=== PATIENT | female | born 1960 | race Caucasian/White ===

== ENCOUNTER 2016-08-14 09:30 | Emergency (ER) | payer SELFPAY ==
[~2016-08-14] VITALS: Wt 85.0 kg
[2016-08-14 09:32] VITALS: Wt 85.0 kg
[2016-08-14 10:19] VITALS: TEMP 98.4
[2016-08-14] MEDS ORDERED: SOD CHLORIDE 0.9% 1,000 ML IV STA (10:19)
[2016-08-14] MEDS ORDERED: LORAZEPAM 2 MG INJ IV ONE (10:30)
[2016-08-14] MEDS ORDERED: AMLO5TAB4 PO (10:37)
[2016-08-14 10:58] LABS: ADD SCAN DIFF NO
[2016-08-14 11:00] LABS: BASOPHIL # 0.1 10^3/ul (0.0-0.1); BASOPHILS % 1.2 % (0.0-2.0); EOSINOPHILS # 0.1 10^3/ul (0.0-0.5); HEMOGLOBIN 16.3 g/dl (12.0-16.0); LYMPHOCYTES # 2.9 10^3/ul (0.8-2.9); LYMPHOCYTES % 47.4 % (15.0-51.0); MEAN CORPUSCULAR HEMOGLOBIN 29.6 pg (29.0-33.0); MEAN CORPUSCULAR HGB CONC 33.3 g/dl (32.0-37.0); MEAN CORPUSCULAR VOLUME 88.9 fl (82.0-101.0); MEAN PLATELET VOLUME 10.5 fl (7.4-10.4); MONOCYTE # 0.4 10^3/ul (0.3-0.9); MONOCYTES % 6.8 % (0.0-11.0); NEUTROPHIL # 2.6 10^3/ul (1.6-7.5); NEUTROPHILS % 42.3 % (39.0-77.0); PLATELET COUNT 243 10^3/UL (140-415); RED BLOOD COUNT 5.51 10^6/ul (4.20-5.40); RED CELL DISTRIBUTION WIDTH 12.2 % (11.5-14.5)
[2016-08-14 11:07] LABS: ADD UMIC NO; URINE BILIRUBIN (Dip) NEGATIVE (NEGATIVE); URINE BLOOD (Dip) NEGATIVE (NEGATIVE); URINE COLOR LT. YELLOW (YELLOW); URINE GLUCOSE (Dip) NEGATIVE (NEGATIVE); URINE KETONES (Dip) NEGATIVE (NEGATIVE); URINE LEUKOCYTE ESTERASE (Dip) NEGATIVE (NEGATIVE); URINE NITRITE (Dip) NEGATIVE (NEGATIVE); URINE TOTAL PROTEIN (Dip) NEGATIVE (NEGATIVE); URINE UROBILINOGEN (Dip) 0.2 E.U./dL (0.1-1.0)
[2016-08-14 11:12] LABS: ALANINE AMINOTRANSFERASE 30 IU/L (13-69); ALBUMIN 5.1 g/dl (3.3-4.9); ALBUMIN/GLOBULIN RATIO 1.24; ALKALINE PHOSPHATASE 121 IU/L (42-121); ANION GAP 16 (8-16); ASPARTATE AMINO TRANSFERASE 27 IU/L (15-46); BILIRUBIN,INDIRECT 0.4 mg/dl (0-1.1); BILIRUBIN,TOTAL 0.4 mg/dl (0.2-1.3); BLOOD UREA NITROGEN 16 mg/dl (7-20); CALCIUM 10.1 mg/dl (8.4-10.2); CARBON DIOXIDE 27 mmol/L (21-31); CHLORIDE 102 mmol/L (97-110); CREATININE 0.59 mg/dl (0.44-1.00); GLUCOSE 111 mg/dl (70-220); POTASSIUM 3.5 mmol/L (3.5-5.1); SODIUM 141 mmol/L (135-144); TOTAL PROTEIN 9.2 g/dl (6.1-8.1)
[2016-08-14 11:24] LABS: TROPONIN-I < 0.010 ng/ml (0.00-0.12)
[2016-08-14] MEDS ORDERED: MECL12.574 PO (11:32)
[2016-08-14] MEDS ORDERED: ALPR0.5T PO (11:32)
--- NOTE | 2016-08-14 11:37 | ERD ---
ER Documentation Chief Complaint Date/Time DATE: 08/14/16 TIME: 11:34 Chief Complaint DIZZINESS WITH MILD CHEST PRESSURE SINCE THIS AM; HPI This is a 56-year-old woman presenting with dizziness which is described as a vertiginous feeling beginning this morning. She states she has these symptoms for at least 2 years and they occur about once to twice per month. She was seen and evaluated at [facility] a few months ago for the same symptoms and a CT scan of the brain as well as an MRI of the brain were performed and results were normal. She denies weight loss, no headaches, no blurry vision, no vomiting or diarrhea. She has not used medications today for her symptoms. ROS All systems reviewed and are negative except as per history of present illness. Medications Home Meds Active Scripts Alprazolam* (Xanax*) 0.5 Mg Tab, 0.5 MG PO Q8H Y for ANXIETY, #12 TAB Prov:DEBORAH CARRILLO MD 08/14/16 Meclizine Hcl* (Antivert*) 12.5 Mg Tab, 25 MG PO BID Y for DIZZINESS, #20 TAB Prov:DEBORAH CARRILLO MD 08/14/16 Reported Medications Amlodipine Besylate* (Norvasc*) 5 Mg Tablet, 5 MG PO DAILY, TAB 08/14/16 Allergies Allergies: Coded Allergies: No Known Allergy (Unverified , 08/14/16) PMhx/Soc History of recurrent dizziness 2 years about once per month, hypertension, previous CT scan of the brain which was unremarkable and recent MR of the brain which was unremarkable FmHx Family History: No diabetes Physical Exam Vitals Vital Signs Date Time Temp Pulse Resp B/P Pulse Ox O2 Delivery O2 Flow Rate FiO2 08/14/16 11:48 70 17 143/69 99 Nasal Cannula 2.0 08/14/16 10:19 98.4 83 19 156/77 99 Nasal Cannula 2.0 08/14/16 09:32 98.0 76 18 125/84 98 Physical Exam GENERAL: Well-developed, well-nourished, well-hydrated, in no apparent distress , looks nontoxic in appearance, anxious HEENT: Moist mucous membranes, pink conjunctiva, no cervical spine tenderness or step-off deformities NEURO: Alert and oriented 3, cranial nerves II through XII intact bilaterally, pupils equal round reactive to light, no focal deficits or facial asymmetry, sensation intact distally Strength 5/5 in upper and lower extremities bilaterally, no nystagmus CARDIAC: Regular rate and rhythm, no murmurs rubs or gallops LUNGS: Clear bilaterally no wheezing crackles or stridor ABDOMEN: Soft nontender, no guarding, no rigidity, no rebound, no psoas sign no obturator sign. Normoactive bowel sounds SKIN: Warm and dry to touch, no abrasions, contusions, or hematomas, no lacerations, no ecchymosis, no target lesions, and without ulcers EXTREMITIES: No clubbing cyanosis or edema, calves are bilaterally symmetrical, no Homans sign, no popliteal cord sign. Distal pulses equal and bilateral PSYCH: Appears anxious Result Diagram: 08/14/16 0900 08/14/16 0900 Results 24 hrs Laboratory Tests Test 08/14/16 09:00 08/14/16 10:15 White Blood Count 6.010^3/ul Red Blood Count 5.5110^6/ul Hemoglobin 16.3g/dl Hematocrit 49.0% Mean Corpuscular Volume 88.9fl Mean Corpuscular Hemoglobin 29.6pg Mean Corpuscular Hemoglobin Concent 33.3g/dl Red Cell Distribution Width 12.2% Platelet Count 78306^3/UL Mean Platelet Volume 10.5fl Neutrophils % 42.3% Lymphocytes % 47.4% Monocytes % 6.8% Eosinophils % 2.0% Basophils % 1.2% Nucleated Red Blood Cells % 0.0/100WBC Neutrophils # 2.610^3/ul Lymphocytes # 2.910^3/ul Monocytes # 0.410^3/ul Eosinophils # 0.110^3/ul Basophils # 0.110^3/ul Nucleated Red Blood Cells # 0.010^3/ul Sodium Level 141mmol/L Potassium Level 3.5mmol/L Chloride Level 102mmol/L Carbon Dioxide Level 27mmol/L Anion Gap 16 Blood Urea Nitrogen 16mg/dl Creatinine 0.59mg/dl Glucose Level 111mg/dl Calcium Level 10.1mg/dl Total Bilirubin 0.4mg/dl Direct Bilirubin 0.00mg/dl Indirect Bilirubin 0.4mg/dl Aspartate Amino Transf (AST/SGOT) 27IU/L Alanine Aminotransferase (ALT/SGPT) 30IU/L Alkaline Phosphatase 121IU/L Troponin I < 0.010ng/ml Total Protein 9.2g/dl Albumin 5.1g/dl Globulin 4.10g/dl Albumin/Globulin Ratio 1.24 Lipase 41U/L Urine Color LT. YELLOW Urine Clarity CLEAR Urine pH 6.5 Urine Specific Amery 1.015 Urine Ketones NEGATIVE Urine Nitrite NEGATIVE Urine Bilirubin NEGATIVE Urine Urobilinogen 0.2 E.U./dL Urine Leukocyte Esterase NEGATIVE Urine Hemoglobin NEGATIVE Urine Glucose NEGATIVE% Urine Total Protein NEGATIVE Current Medications Medications (Trade) Dose Ordered Sig/Kimber Route PRN Reason Start Time Stop Time Status Last Admin Dose Admin Sodium Chloride (NS) 1,000 ml @ 1,000 mls/hr Q1H STAT IV 08/14/16 10:19 08/14/16 11:18 DC 08/14/16 10:40 Lorazepam (Ativan) 0.5 mg ONCE ONCE IV 08/14/16 10:30 08/14/16 10:31 DC 08/14/16 10:41 Procedures/MDM IV line was established patient was placed on athletic monitor rhythm strip revealed a sinus rhythm at about 80 bpm with upright P and T waves. Patient was afebrile. EKG performed, read by me: 70 bpm, normal sinus rhythm, normal axis, no acute ST segment changes, narrow QRS complex, with good R-wave progression in precordial leads. I administered lorazepam 0.5 mg IV and 1 L of normal saline intravenously which helped with her symptoms. CBC and electrolytes were normal, urine analysis was negative for infection. Liver function tests were normal, troponin was negative. Further management and imaging if indicated deferred to her PMD as an outpatient. Differential diagnoses considered, included but not limited to acute coronary syndrome, pulmonary embolism, aortic dissection, abdominal aortic aneurysm, sepsis, stroke, meningitis, encephalitis, pneumonia, appendicitis, cholecystitis , bowel obstruction, pyelonephritis, nephrolithiasis, cystitis, as well as metabolic, hematologic, and electrolyte abnormalities. As well as abscess, cellulitis, fractures, and dislocations. Patient feels much better at this time, and vital signs are normal, symptoms have improved. I did give strict instructions to return to the ED if symptoms continue or worsen, patient will otherwise follow-up with primary care physician. Patient understood instructions and agreed to plan. Departure Diagnosis: Primary Impression: Dizziness Condition: Good Patient Instructions: Inner Ear Problems: Causes of Dizziness (Vertigo), Dizziness, Unk Cause DEBORAH CARRILLO MD Aug 14, 2016 11:37
[2016-08-14 11:48] VITALS: BP 143/69; PULSE 70; RESP 17
== END 2016-08-14 12:03 | disposition home or self-care (01) ==
LOC: E/R 09:30
DX: R42 Dizziness and giddiness (principal); R40.2252 Coma scale, best verbal response, oriented, at arrival to emergency department; R40.2142 Coma scale, eyes open, spontaneous, at arrival to emergency department; R40.2362 Coma scale, best motor response, obeys commands, at arrival to emergency department
CPT/HCPCS: 80053; 81003; 83690; 84484; 85025; 93005; J2060; J7030; 36415; 96374